=== PATIENT | male | born 1960 | race Caucasian/White ===

== ENCOUNTER 2018-08-19 09:42 | Inpatient (IN) ==
[2018-08-19] MEDS ORDERED: ASPIRIN 325 MG TABLET PO STA (10:58)
[2018-08-19] MEDS ORDERED: ENOXAPARIN 100 MG/ML SYRINGE SUBCUT STA (10:58)
[2018-08-19] MEDS ORDERED: ONDANSETRON 4 MG/2 ML VIAL IV STA (10:58)
[2018-08-19] MEDS ORDERED: MORPHINE 4 MG/1 ML VIAL IV STA (10:58)
[2018-08-19] MEDS ORDERED: ACETAMINOPHEN 325 MG TABLET PO PRN (11:28)
[2018-08-19] MEDS ORDERED: ONDANSETRON 4 MG/2 ML VIAL IV PRN (11:28)
[2018-08-19 11:57] LABS: Basophils # 0.1 10*3/uL (0.0-0.2); Basophils % 0.5 % (0.0-0.8); Eosinophils % 0.4 % (0.00-10.9); Hematocrit 42.9 VOL% (42.0-52.0); Hemoglobin 14.3 GM/DL (14.0-18.0); Immature Granulocytes % 0.9 %; Immature Granulocytes Absolute 0.09 #; Lymphocytes # 0.8 10*3/uL (1.4-4.0); Lymphocytes % 7.4 % (21.2-54.2); Mean Corpuscular HGB Conc 33.3 GM/DL (32-36); Mean Corpuscular Volume 94.1 FL (87-102); Mean Platelet Volume 9.7 FL (9.6-12.0); Monocytes % 8.8 % (1.7-12.7); Platelet Count 198 T/CUMM (130-400); Red Blood Count 4.56 MC/CUMM (3.8-5.5); Red Cell Distribution Width 11.9 % (9.3-17.3); White Blood Count 10.5 T/CUMM (4-12)
[2018-08-19 12:04] LABS: INR 0.9; PT Patient Result 10.1 SECS
[2018-08-19 12:22] LABS: Alanine Aminotransferase 35 U/L (16-61); Albumin 3.9 G/DL (3.4-5.0); Alkaline Phosphatase 111 U/L (45-117); Aspartate Amino Transferase 26 U/L (0-37); Blood Urea Nitrogen 16 MG/DL (7-18); Calcium 9.7 MG/DL (8.5-10.1); Glucose 122 MG/DL (74-106); Osmolality,Calculated 259.9 MOS/KG (273-304); Total Protein 8.4 G/DL (6.4-8.3); Troponin I < 0.015 NG/ML (0.00-0.045)
[2018-08-19] MEDS: ENOXAPARIN 120 MG/0.8 ML SYRINGE SUBCUT SCH ×2 (12:55→23:42)
[2018-08-19] MEDS: PANTOPRAZOLE 40 MG TABLET PO SCH (13:01)
[2018-08-19] MEDS ORDERED: hydrALAZINE 20 MG/1 ML VIAL IV PRN (13:58)
[2018-08-19 16:10] LABS: Calcium 9.6 MG/DL (8.5-10.1); Osmolality,Calculated 259.1 MOS/KG (273-304)
[2018-08-19] MEDS ORDERED: LACTATED RINGERS 500 ML IV ONE (23:02)
[2018-08-19] MEDS ORDERED: tiZANidine 4 MG TABLET PO ONE (23:04)
[2018-08-20 05:45] LABS: Basophils # 0.1 10*3/uL (0.0-0.2); Basophils % 0.6 % (0.0-0.8); Eosinophils # 0.3 10*3/uL (0.0-0.87); Eosinophils % 3.7 % (0.00-10.9); Hematocrit 38.5 VOL% (42.0-52.0); Hemoglobin 12.7 GM/DL (14.0-18.0); Immature Granulocytes % 0.6 %; Immature Granulocytes Absolute 0.05 #; Lymphocytes # 1.8 10*3/uL (1.4-4.0); Lymphocytes % 20.8 % (21.2-54.2); Mean Corpuscular Volume 95.1 FL (87-102); Mean Platelet Volume 9.8 FL (9.6-12.0); Monocytes % 8.5 % (1.7-12.7); Neutrophils % 65.8 % (38.7-73.9); Platelet Count 187 T/CUMM (130-400); Red Blood Count 4.05 MC/CUMM (3.8-5.5); Red Cell Distribution Width 11.8 % (9.3-17.3); White Blood Count 8.6 T/CUMM (4-12)
[2018-08-20 06:19] LABS: Calcium 9.2 MG/DL (8.5-10.1); Osmolality,Calculated 262.9 MOS/KG (273-304)
[2018-08-20] MEDS: ENOXAPARIN 120 MG/0.8 ML SYRINGE SUBCUT SCH (11:50)
[2018-08-20] MEDS: PANTOPRAZOLE 40 MG TABLET PO SCH (11:50)
[2018-08-20] MEDS ORDERED: chlordiazePOXIDE 25 MG CAPSULE PO PRN (22:32)
[2018-08-21] MEDS: ENOXAPARIN 120 MG/0.8 ML SYRINGE SUBCUT SCH ×3 (00:27→23:19)
[2018-08-21 05:14] LABS: Osmolality,Calculated 263.7 MOS/KG (273-304)
[2018-08-21] MEDS ORDERED: chlordiazePOXIDE 10 MG CAPSULE PO SCH (10:00)
[2018-08-21] MEDS: NICOTINE 21 MG/24 HR PATCH TRANSDERM SCH (11:08)
[2018-08-21] MEDS ORDERED: LORazepam 2 MG/1 ML VIAL IV PRN (12:50)
[2018-08-21] MEDS: chlordiazePOXIDE 10 MG CAPSULE PO SCH ×2 (15:08→20:50)
[2018-08-21] MEDS: PANTOPRAZOLE 40 MG TABLET PO SCH (15:08)
[2018-08-21] MEDS ORDERED: LACTULOSE 20 GM/30 ML UDCUP PO PRN (23:14)
[2018-08-22] MEDS: chlordiazePOXIDE 10 MG CAPSULE PO SCH (08:40)
[2018-08-22] MEDS: PANTOPRAZOLE 40 MG TABLET PO SCH (08:41)
[2018-08-22] MEDS: NICOTINE 21 MG/24 HR PATCH TRANSDERM SCH (08:41)
[2018-08-22 09:14] VITALS: BP 118/73
== END 2018-08-22 11:22 | disposition home or self-care (01) | DRG 176 ==
LOC: N.EDINP 09:42 → N.ED 09:42 → N.4E 12:17
PROVIDERS: ADMIT Internal Medicine; ATTEND Internal Medicine